=== PATIENT | male | born 1995 | race African-American/Black ===

== ENCOUNTER 2022-04-03 04:20 | Emergency (ER) | payer MEDICAID | END 2022-04-03 05:24 | disposition left against medical advice (07) | LOC: ER 04:20 | DX: Z53.21 Procedure and treatment not carried out due to patient leaving prior to being seen by health care provider (principal) ==

== ENCOUNTER 2024-09-28 16:41 | Emergency (ER) | payer MEDICAID ==
[~2024-09-28] VITALS: Ht 190.5 cm; Wt 68.0 kg
[2024-09-28 16:49] VITALS: O2SAT 98
[2024-09-28] MEDS ORDERED: LIDOCAINE HCL/EPINEPHRINE 1%-EPI 1:100,000 10ML VIAL INFIL ONE (17:30)
[2024-09-28] MEDS: TETANUS, DIPHTHERIA, PERTUSSIS VAC/PF 0.5ML (>10YR OLD) IM ONE (17:49)
[2024-09-28] MEDS: LIDOCAINE HCL/EPINEPHRINE 1%-EPI 1:100,000 20ML VIAL INFIL NR (17:50)
[2024-09-28] MEDS ORDERED: MUPI15CR11 TP (18:44)
[2024-09-28 19:08] VITALS: BP 116/54; PULSE 88; RESP 18; TEMP 36.9; O2SAT 98
== END 2024-09-28 19:09 | disposition home or self-care (01) ==
LOC: ER 16:41
DX: S01.112A Laceration without foreign body of left eyelid and periocular area, initial encounter (principal); S01.81XA Laceration without foreign body of other part of head, initial encounter; X58.XXXA Exposure to other specified factors, initial encounter; Y93.89 Activity, other specified; Y92.89 Other specified places as the place of occurrence of the external cause; Y99.8 Other external cause status
CPT/HCPCS: 90715; 12011; 90471; 99283; J2004; Z7610 ×2

== ENCOUNTER 2024-10-03 14:26 | Emergency (ER) | payer MEDICAID ==
[~2024-10-03] VITALS: Ht 188 cm; Wt 63.5 kg
[~2024-10-03 14:26] MED LIST: MUPI15CR11 TP
[2024-10-03 14:27] VITALS: PULSE 87; RESP 18; O2SAT 98
[2024-10-03 14:28] VITALS: BP 118/76; TEMP 37; O2SAT 100
== END 2024-10-03 15:15 | disposition left against medical advice (07) ==
LOC: ER 14:26
DX: S01.112D Laceration without foreign body of left eyelid and periocular area, subsequent encounter (principal); Z48.02 Encounter for removal of sutures; X58.XXXD Exposure to other specified factors, subsequent encounter